=== PATIENT | female | born 1985 | race Hispanic/Latino ===

== ENCOUNTER 2016-05-21 16:28 | Emergency (ER) | payer OTHER ==
[~2016-05-21] VITALS: Ht 160 cm; Wt 93.6 kg
[~2016-05-21 16:28] MED LIST: Hydrocodone/Acetaminophen PO; Ibuprofen PO; PREN-100 PO; TUCPAD TOPICAL
[2016-05-21 16:30] VITALS: BP 108/67; PULSE 73; RESP 20; O2SAT 99
[2016-05-21] MEDS ORDERED: 0.9% Sodium Chloride 1,000 ML IV ONE (16:43)
[2016-05-21] MEDS ORDERED: Ondansetron 2 mg/mL 2 mL Inj IV PRN (16:45)
[2016-05-21 17:34] LABS: APPEARANCE,URINE TURBID (CLEAR,HAZY); COLOR,URINE YELLOW (YELLOW); OCCULT BLOOD,URINE SMALL (NEGATIVE); PH,URINE 5.5 (5.0-8.0); UROBILINOGEN,URINE NORMAL (NORMAL)
[2016-05-21] MEDS ORDERED: Nitrofurantoin Monohyd-Macrocryst 100 mg Capsule PO ONE (17:40)
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
[2016-05-21 18:15] LABS: BASOPHILS % (AUTO) 0.2 % (0-3); EOSINOPHILS % (AUTO) 1.1 % (0-5); MONOCYTES % (AUTO) 8.1 % (4-12); Mean Corpuscular Hemoglobin 29.5 pg (27.0-35.0); NEUTROPHILS % (AUTO) 70.1 % (40-74); Platelet Count 209 bil/L (150-400)
[2016-05-21 18:33] LABS: Magnesium 1.8 mg/dL (1.6-2.6)
[2016-05-21] MEDS ORDERED: _Ondansetron ODT 4 mg Tablet PO PRN (18:35)
[2016-05-21] MEDS ORDERED: cefTRIAXone Inj 1,000 MG in Dextrose 5% Minibag Plus 50 ML IV ONE (18:50)
[2016-05-21 19:25] VITALS: BP 102/63; PULSE 54; O2SAT 100
[2016-05-21 19:58] VITALS: BP 102/63; PULSE 54; RESP 20; O2SAT 100
[2016-05-21] MEDS ORDERED: _Nitrofurantoin Macrocrystal 100 mg Capsule PO SCH (20:30)
== END 2016-05-21 20:09 | disposition home or self-care (01) ==
LOC: SED 16:28
DX: O21.1 Hyperemesis gravidarum with metabolic disturbance (principal); O23.31 Infections of other parts of urinary tract in pregnancy, first trimester; B96.20 Unspecified Escherichia coli [E. coli] as the cause of diseases classified elsewhere; Z3A.12 12 weeks gestation of pregnancy
CPT/HCPCS: 36415; 80053; 81000; 83605; 83690; 83735; 85025; 87086; 87088; 87186; 93005; 96361; 96365; 99285; J0696; J7030

== ENCOUNTER 2016-05-26 13:30 | Day surgery (SDC) | payer OTHER ==
[2016-05-26] MEDS ORDERED: Lactated Ringer's 1,000 ML IV ONE (13:45)
[2016-05-26 14:05] VITALS: BP 109/54; PULSE 58; RESP 16; O2SAT 98
== END 2016-05-26 23:59 | disposition home or self-care (01) ==
LOC: MOCO 13:30
PROVIDERS: ATTEND Obstetrics & Gynecology
DX: O21.0 Mild hyperemesis gravidarum (principal); Z3A.11 11 weeks gestation of pregnancy
CPT/HCPCS: 96360; J7120

== ENCOUNTER 2016-06-14 18:54 | Emergency (ER) | payer OTHER ==
[~2016-06-14] VITALS: Ht 162.6 cm; Wt 92.7 kg
[2016-06-14 19:06] VITALS: BP 101/65; PULSE 68; RESP 20; O2SAT 100
[2016-06-14 19:32] LABS: BASOPHILS % (AUTO) 0.1 % (0-3); EOSINOPHILS % (AUTO) 1.2 % (0-5); MONOCYTES % (AUTO) 8.4 % (4-12); Mean Corpuscular Hemoglobin 28.8 pg (27.0-35.0); Mean Corpuscular Volume 83.3 fL (81-100); NEUTROPHILS % (AUTO) 65.1 % (40-74); Platelet Count 204 bil/L (150-400)
[2016-06-14 19:54] LABS: Magnesium 1.8 mg/dL (1.6-2.6)
--- NOTE | 2016-06-14 20:28 | ED.REPORT ---
HPI-Abd Pain F Under 40 Date of Service Jun 14, 2016 ED Provider: Navjot García MD A 30 year old, approx 3 month female presents to the ED complaining of diffuse mild/constant abdominal pain that began 3 months ago. Patient rates her current pain as a 3/10 and describes the pain as "sharp". Patient states that the pain has been constant since onset. Associated symptoms include nausea and 4-5 episodes of vomiting per day (which has been managed with Zofran). The pain is not exacerbated or received by anything. Patient was seen in the ED on 05/21 for similar symptoms and was treated with Macrobid and Rocephin for a UTI, Sx resolved an dthen returned. She denies fever, chills, increased urinary frequency, dysuria, or abnormal discharge. Patient denies history of STI's. Nursing Notes Stated Complaint: STOMACH PAIN Chief Complaint: Female Abdominal Pain Nursing Notes Reviewed: Yes Allergies: Coded Allergies: No Known Allergies (Verified Allergy, Unknown, 06/14/16) Scheduled PRN ([Hydrocodone/Acetaminophen]) 1 TAB TABLET 1 TAB PO Q4H PRN PRN For Pain ([Ibuprofen]) 800 MG TABLET 800 MG PO Q6H PRN PRN For Pain Witch Silva/Glycerin (A.e.r Pads) 12 Towelette/Pkg Towelette 1 TOWELETTE TOPICAL UD PRN PRN perineal discomfort Miscellaneous Medications Vits #90/Iron Fum/FA ( Formula Tablet) 1 Each Tablet 1 EACH PO General Time Seen by MD: 20:23 Chief Complaint Abdominal pain Hx Obtained From: Patient Arrived By: Walk-in Sudden in Onset?: No Onset Occurred: More than a week ago... (3 months) Symptom Duration: Since onset Progression since Onset: Unchanged Location: : Diffuse Quality: Sharp Radiation: : Does not radiate Severity: Current: Mild Severity: Maximum: Moderate Status: Positive - ED urine HCG : 4 Para: 3 RH Status / Blood Type: Rh Positive Pertinent Negative: Exacerbated by nothing, Relieved by nothing Recent Healthcare: No recent hospitalization, Recent doctor visit Past Medical History Past Medical History Notes: 03/24/14 Rh test is positive Past Medical History Approx 3 months Past Surgical History Denies Smoking History Unknown if Ever Smoker Social History Alcohol Use: Denies alcohol use Other Social History: , Lives with children Ambulatory Status Independent Review of Systems Constitutional: Denies: Chills, Fever Respiratory: Denies: Shortness of breath Cardiovascular: Denies: Chest pain GI: Reports: Abdominal pain, Nausea, Vomiting Female: Reports: (approx 3 months ), Denies: Dysuria, Urinary frequency, Vaginal bleeding - abnl, Vaginal discharge Complete sys rev & neg: except as marked. Physical Exam Initial Vital Signs Vital Signs (First) Date Time Temp Pulse Resp B/P Pulse Ox O2 Delivery O2 Flow Rate FiO2 06/14/16 19:06 36.4 68 20 101/65 100 Room Air Initial VS: Reviewed Head / Eyes: Atraumatic, Normocephalic, PERRL Extremities: Vascular intact, Neuro intact, No swelling, No tenderness Skin: Warm, Dry, No cyanosis Neurologic: Alert, Oriented, Nonfocal Psychiatric: Mood/affect normal, Behavior normal, Normal thought content General/Constitutional: Awake, Alert Respiratory / Chest: Atraumatic, Breath sounds NL, Breath sounds = bilat, No respiratory distress Cardiovascular: Heart rate NL, Regular rhythm, Heart sounds NL, No gallop, No murmurs, No rubs, Pulses = bilaterally (Good distal pulses ) Abdomen: Atraumatic, Soft, Non-tender (Tolerates firm palpation in all four quadrants), No distention Back: Atraumatic, Inspection NL ENT: Atraumatic, Airway patent, Mucous membranes moist Interpretation & Diagnostics Lab Results Interpretation Result Diagram: 06/14/16192306/14/161923 Test 06/14/16 19:24 06/14/16 20:38 06/14/16 20:58 White Blood Count 8.3th/mm3 (3.8-10.1) Red Blood Count 4.44mil/mm3 (3.90-5.20) Hemoglobin 12.8g/dL (12.0-15.6) Hematocrit 37.0% (35.0-46.0) Mean Corpuscular Volume 83.3fL (81-100) Mean Corpuscular Hemoglobin 28.8pg (27.0-35.0) Mean Corpuscular Hemoglobin Concent 34.6% (32.0-37.0) Red Cell Distribution Width 14.0% (12.3-15.4) Platelet Count 204bil/L (150-400) Neutrophils (%) (Auto) 65.1% (40-74) Lymphocytes (%) (Auto) 25.0% (14-46) Monocytes (%) (Auto) 8.4% (4-12) Eosinophils (%) (Auto) 1.2% (0-5) Basophils (%) (Auto) 0.1% (0-3) Sodium Level 135mEq/L (134-144) Potassium Level 3.8mEq/L (3.5-5.2) Chloride Level 99mEq/L (97-108) Carbon Dioxide Level 22mmol/L (18-29) Blood Urea Nitrogen 10mg/dL (6-20) Creatinine 0.48mg/dL (0.57-1.00) Estimat Glomerular Filtration Rate 215mL/min (>59) Glucose Level 88mg/dL (60-99) Calcium Level 8.9mg/dL (8.5-10.1) Magnesium Level 1.8mg/dL (1.6-2.6) Total Bilirubin 0.3mg/dL (0.0-1.2) Aspartate Amino Transf (AST/SGOT) 15U/L (0-50) Alanine Aminotransferase (ALT/SGPT) 13U/L (0-32) Alkaline Phosphatase 83U/L (25-150) Total Protein 7.3g/dL (6.4-8.4) Albumin 3.8g/dL (3.4-5.0) Lipase 30U/L (13-60) HCG Beta Subunit [id number]/mL Hold Martin Top Tube Received (Received) Hold Urine Received (Received) Urine Color Yellow (YELLOW) Urine Appearance Hazy (CLEAR,HAZY) Urine pH 6.0 (5.0-8.0) Urine Specific [place] 1.020 (1.003-1.035) Urine Protein Negativemg/dL (NEG,TRACE) Urine Glucose (UA) Negativemg/dL (NEGATIVE) Urine Ketones Negativemg/dL (NEGATIVE) Urine Occult Blood Trace (NEGATIVE) Urine Nitrite Negative (NEGATIVE) Urine Bilirubin Negative (NEGATIVE) Urine Urobilinogen Normalmg/dL (NORMAL) Urine Leukocyte Esterase Large (NEGATIVE) Urine RBC 0-2/hpf (0-2) Urine WBC >50/hpf (0-5) Urine Epithelial Cells Many/hpf (NONE-MOD) Urine Crystals None seen (NONE SEEN) Urine Bacteria Moderate/hpf (NONE-FEW) Urine Hyaline Casts None/lpf (NONE) Urine Granular Casts None seen (NONE SEEN) Urine Waxy Casts None seen (NONE SEEN) Urine Red Blood Cell Casts None seen (NONE SEEN) Urine White Blood Cell Casts None seen (NONE SEEN) Urine Mucus None seen (None Seen) Urine Trichomonas None seen (NONE SEEN) Urine Yeast None (NONE SEEN) Urine Culture Reflexed Indicated Re-Eval/Medical Decision Med Decision/Clinical Course A 30 year old, approx 3 month female presents to the ED complaining of diffuse mild/constant abdominal pain that began 3 months ago. Patient rates her current pain as a 3/10 and describes the pain as "sharp". Patient states that the pain has been constant since onset. Associated symptoms include nausea and 4-5 episodes of vomiting per day (which has been managed with Zofran). The pain is not exacerbated or received by anything. Patient was seen in the ED on 05/21 for similar symptoms and was treated with Macrobid and Rocephin for a UTI, Sx resolved an dthen returned. She denies fever, chills, increased urinary frequency, dysuria, or abnormal discharge. Patient denies history of STI's. No vaginal bleeding or abnormal vaginal discharge. Here in the emergency department the patient is afebrile with stable vital signs and in no apparent distress. Abdominal examination is completely benign. Laboratory studies notable as below: UA positive leukocytes negative nitrites trace blood positive Last UA 05/21 - E. coli powell susceptible Serial abdominal examinations remained benign. I see no indication at this time due to the patient is suffering from an acute surgical intra-abdominal process. History, examination and presentation not suggestive of acute cholecystitis/biliary colic. No vaginal bleeding suggestive of a threatened . Patient afebrile and nontoxic in appearance without any percussive flank tenderness. History and examination not suggestive of acute appendicitis or ovarian torsion. 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 Urinalysis is consistent with UTI in the setting of I will go ahead and treat her with a 7 day course of amoxicillin. Given that she recurrence of her symptoms after treatment with Macrobid. I have opted to change to a different antibiotic though she was sensitive to both on previous culture. She will follow closely with her SCHEME TECHNICIAN later this week. Follow-up and return precautions were reviewed in detail and she was discharged in good condition. Re-Evaluation/Progress : Time of Eval: 21:46 Patient Status: Condition improved Re-Evaluation/Progress Note: Patient is rechecked. She is informed of her lab results and diagnosis. All of the patient's questions are adressed. She understands and agrees with the treatment plan to discharge. Counseled Regarding: Diagnosis, Lab results, Need for follow-up, When/why to return to ED Discharge & Departure Primary Impression: UTI (urinary tract infection) Urinary tract infection type: site unspecified Hematuria presence: without hematuria Qualified Code: N39.0 - Urinary tract infection, site not specified Additional Impressions: Asymptomatic bacteriuria Weeks of gestation: unspecified Qualified Code: Z33.1 - state, incidental Abdominal pain Abdominal location: unspecified location Qualified Code: R10.9 - Unspecified abdominal pain Disposition: Home Discharge Condition All VS Reviewed: Yes Condition: Improved Patient Instructions: Urinary Tract Infection in Women (ED) Additional Instructions: Thank you for seeking care at the emergency room. It is difficult for us to make definitive diagnoses in the ED but we believe that you are experiencing a urinary tract infection. Our primary goal today in the ED was to evaluate you for any life-threatening conditions. Your evaluation was reassuring. You will be discharged with a prescription for an amoxicillin. Please take as prescribed. You should follow-up with your outreach librarian in the next week. You should return to the ED immediately if you develop fevers, vomiting, vaginal bleeding, worsening pain, lightheadedness, weakness or any other concerning signs or symptoms. Thank you for letting us partake in your care today. Referrals: NOPCP (PCP) Jerri Campos MD Attestation Portions of this note were transcribed by Scotty Rondon. I, Dr. García personally performed the history, physical exam and medical decision-making; I reviewed and confirmed the accuracy of the information in the transcribed note. Signed by: Selene Stevenson, 06/14/16 [id number]. Navjot García MD Jun 14, 2016 20:27 SCOTTY RONDON Jun 14, 2016 20:55
[2016-06-14 21:51] VITALS: BP 103/68; PULSE 65; RESP 16; O2SAT 100
[2016-06-14 22:06] LABS: APPEARANCE,URINE HAZY (CLEAR,HAZY); COLOR,URINE YELLOW (YELLOW); OCCULT BLOOD,URINE TRACE (NEGATIVE); UROBILINOGEN,URINE NORMAL (NORMAL)
== END 2016-06-14 21:48 | disposition home or self-care (01) ==
LOC: SED 18:54
DX: O23.41 Unspecified infection of urinary tract in pregnancy, first trimester (principal); R82.71 Bacteriuria; O21.0 Mild hyperemesis gravidarum; Z3A.00 Weeks of gestation of pregnancy not specified

== ENCOUNTER 2016-07-16 18:06 | Emergency (ER) | payer OTHER ==
[~2016-07-16] VITALS: Ht 162.6 cm; Wt 90.5 kg
[2016-07-16 18:28] VITALS: BP 107/64; PULSE 63; RESP 15; O2SAT 99
--- NOTE | 2016-07-16 19:11 | ED.REPORT ---
HPI-General Illness Date of Service Jul 16, 2016 ED Provider: Navjot García MD Patient is a 30 year old female at approximately four months by US dating with a history of GERD who presents to the ED with burning epigastric abdominal pain onset two hours ago. The pain is exacerbated with eating. Associated symptoms include insomnia and increased production of acidic sputum. The patient denies dysuria, hematuria, vaginal discharge, or other symptoms. She has had similar symptoms in the past associated with GERD. The patient was previously on pantoprazole but she stopped taking this medication when she became . [facility] . Nursing Notes Stated Complaint: WITH STOMACH PAIN Chief Complaint: & Delivery Nursing Notes Reviewed: Yes Allergies: Coded Allergies: No Known Allergies (Verified Allergy, Unknown, 07/16/16) Scheduled Nitrofurantoin Macrocrystal (Nitrofurantoin Macrocrystal) 100 Mg Capsule 100 MG PO QID Scheduled PRN ([Hydrocodone/Acetaminophen]) 1 TAB TABLET 1 TAB PO Q4H PRN PRN For Pain ([Ibuprofen]) 800 MG TABLET 800 MG PO Q6H PRN PRN For Pain Sucralfate Susp (Carafate Susp) 1 Gm/10 Ml Oral.susp 1 GM PO QID PRN PRN AD Witch Silva/Glycerin (A.e.r Pads) 12 Towelette/Pkg Towelette 1 TOWELETTE TOPICAL UD PRN PRN perineal discomfort Miscellaneous Medications Vits #90/Iron Fum/FA ( Formula Tablet) 1 Each Tablet 1 EACH PO General Time Seen by MD: 18:53 Chief Complaint Abdominal pain Hx Obtained From: Patient Arrived By: Walk-in Sudden in Onset?: Yes Onset Occurred: 1 - 4 hours ago Symptom Duration: Since onset Location: : Abdomen (Epigastric) Quality: Burning, Painful Severity: Current: Moderate Severity: Maximum: Moderate Exacerbated by: Eating Pertinent Negative: Relieved by nothing Context Related History: Reports GERD Recent Healthcare: Recent doctor visit Similar Sx Previous: Yes Past Medical History Past Medical History Notes: 03/24/14 Rh test is positive Past Medical History as of 07/16/2016 GERD Past Surgical History Denies Smoking History Unknown if Ever Smoker Social History Alcohol Use: Denies alcohol use Other Social History: , Lives with children Ambulatory Status Independent Review of Systems + Increased production of acidic sputum Full Review of Systems Constitutional: Denies: Fever Respiratory: Denies: Non-productive cough, Shortness of breath GI: Reports: Abdominal pain (Epigastric), Denies: Diarrhea, Vomiting Female: Denies: Dysuria, Hematuria, Vaginal discharge Psychiatric: Reports: Insomnia Complete sys rev & neg: except as marked. Physical Exam Vital Signs Vital Signs Date Time Temp Pulse Resp B/P Pulse Ox O2 Delivery O2 Flow Rate FiO2 07/16/16 18:28 36.9 63 15 107/64 99 Room Air Initial VS: Reviewed Head / Eyes: Atraumatic, Normocephalic ENT: Conjunctiva normal, No scleral icterus Neck: Supple, Full range of motion Skin: Warm, Dry, No cyanosis Neurologic: Alert, Oriented, Nonfocal Psychiatric: Mood/affect normal, Behavior normal, Normal thought content General/Constitutional: Awake, Alert, No acute distress Respiratory / Chest: Breath sounds NL, Breath sounds = bilat, No respiratory distress Cardiovascular: Heart rate NL, Regular rhythm, Heart sounds NL, No gallop, No murmurs, No rubs Abdomen: Soft, No distention Tenderness/Guarding/Rebound: Positive: Tender epigastric (Mild) Gravid abdomen consistent with 16 weeks of Lower Extremity / Pelvis / MS: Inspection NL, No swelling Interpretation & Diagnostics URINE DIPSTICK: 1.015 sp gravity 7 pH ++ Leukocytes + Nitrites Trace protein Normal glucose 8 Urobilinogen Otherwise Negative Lab Results Interpretation Result Diagram: 07/16/16190407/16/161904 Test 07/16/16 19:05 07/16/16 19:15 White Blood Count 7.9th/mm3 (3.8-10.1) Red Blood Count 4.05mil/mm3 (3.90-5.20) Hemoglobin 12.2g/dL (12.0-15.6) Hematocrit 34.7% (35.0-46.0) Mean Corpuscular Volume 85.7fL (81-100) Mean Corpuscular Hemoglobin 30.1pg (27.0-35.0) Mean Corpuscular Hemoglobin Concent 35.2% (32.0-37.0) Red Cell Distribution Width 14.9% (12.3-15.4) Platelet Count 194bil/L (150-400) Neutrophils (%) (Auto) 71.6% (40-74) Lymphocytes (%) (Auto) 19.6% (14-46) Monocytes (%) (Auto) 7.2% (4-12) Eosinophils (%) (Auto) 1.0% (0-5) Basophils (%) (Auto) 0.3% (0-3) Sodium Level 138mEq/L (134-144) Potassium Level 3.4mEq/L (3.5-5.2) Chloride Level 102mEq/L (97-108) Carbon Dioxide Level 20mmol/L (18-29) Blood Urea Nitrogen 10mg/dL (6-20) Creatinine 0.41mg/dL (0.57-1.00) Estimat Glomerular Filtration Rate 258mL/min (>59) Glucose Level 94mg/dL (60-99) Calcium Level 9.2mg/dL (8.5-10.1) Magnesium Level 1.7mg/dL (1.6-2.6) Total Bilirubin 0.4mg/dL (0.0-1.2) Aspartate Amino Transf (AST/SGOT) 21U/L (0-50) Alanine Aminotransferase (ALT/SGPT) 30U/L (0-32) Alkaline Phosphatase 98U/L (25-150) Total Protein 7.3g/dL (6.4-8.4) Albumin 3.8g/dL (3.4-5.0) Lipase 31U/L (13-60) Hold Martin Top Tube Received (Received) Urine Color Yellow (YELLOW) Urine Appearance Clear (CLEAR,HAZY) Urine pH 7.0 (5.0-8.0) Urine Specific Lovilia 1.020 (1.003-1.035) Urine Protein 30mg/dL (NEG,TRACE) Urine Glucose (UA) 100mg/dL (NEGATIVE) Urine Ketones Tracemg/dL (NEGATIVE) Urine Occult Blood Negative (NEGATIVE) Urine Nitrite Negative (NEGATIVE) Urine Bilirubin Negative (NEGATIVE) Urine Urobilinogen 8.0mg/dL (NORMAL) Urine Leukocyte Esterase Small (NEGATIVE) Urine RBC 0-2/hpf (0-2) Urine WBC 0-5/hpf (0-5) Urine Epithelial Cells Many/hpf (NONE-MOD) Urine Crystals Oxalic acid crystals (NONE Urine Bacteria None/hpf (NONE-FEW) Urine Hyaline Casts None/lpf (NONE) Urine Granular Casts None seen (NONE SEEN) Urine Waxy Casts None seen (NONE SEEN) Urine Red Blood Cell Casts None seen (NONE SEEN) Urine White Blood Cell Casts None seen (NONE SEEN) Urine Mucus Present (None Seen) Urine Trichomonas None seen (NONE SEEN) Urine Yeast None (NONE SEEN) Urinalysis Comment None Urine Culture Reflexed Indicated Re-Eval/Medical Decision Med Decision/Clinical Course Patient is a 30 year old female at approximately four months by US dating with a history of GERD who presents to the ED with burning epigastric abdominal pain onset two hours ago. The pain is exacerbated with eating. Associated symptoms include insomnia and increased production of acidic sputum. The patient denies dysuria, hematuria, vaginal discharge, or other symptoms. She has had similar symptoms in the past associated with GERD. The patient was previously on pantoprazole but she stopped taking this medication when she became . [facility] . Here in the emergency department the patient is afebrile with stable vital signs and in no apparent distress. Abdominal examination is completely benign except for very mild epigastric tenderness. URINE DIP: 2+ leukocytes, + nitrites LABS: CBC shows no leukocytosis Hematocrit 34.7 CMP unremarkable Urinalysis shows small leukocyte esterase, no bacteria, 0-5 WBCs, nitrite negative Presentation highly suggestive of GERD as the patient's symptoms are similar to her prior episodes of GERD, she is currently and recently stopped her PPI due to being . She was treated with sucralfate and reported dramatic improvement in her symptoms. I do not feel that her presentation is suggestive of an acute surgical process such as cholecystitis and I do not feel that abdominal imaging studies are indicated. She has no symptoms suggestive of impending miscarriage such as cramping abdominal pain or vaginal bleeding. She well dietary changes and lifestyle changes and takes sucralfate if needed for breakthrough symptoms. Of note she has asymptomatic bacteriuria and has been prescribed an appropriate course of antibiotics. She will follow up with her POWER TECHNICIAN. Prior to discharge follow-up and return precautions were reviewed in detail with the patient who verbalized understanding and agreement with the plan. The patient was discharged in stable condition. Source of Hx: Old records Time of Eval: 20:15 Patient Status: Condition improved Re-Evaluation/Progress Note: Discussed with patient lab results, diagnosis, and plan for discharge. Follow-up and return to the ER instructions given. Patient agrees with plan for care and all questions were addressed. Counseled Regarding: Diagnosis, Lab results, Need for follow-up, When/why to return to ED Discharge & Departure Primary Impression: GERD (gastroesophageal reflux disease) Esophagitis presence: with esophagitis Qualified Code: K21.0 - Gastro- esophageal reflux disease with esophagitis Additional Impressions: Gastritis Gastritis type: unspecified gastritis Chronicity: acute Gastritis bleeding : without bleeding Qualified Code: K29.00 - Acute gastritis without bleeding Asymptomatic bacteriuria Weeks of gestation: 16 weeks Qualified Code: Z3A.16 - 16 weeks gestation of Disposition: Home Discharge Condition All VS Reviewed: Yes Condition: Improved Patient Instructions: Gastritis (ED), Gastroesophageal Reflux Disease (ED) Additional Instructions: Thank you for seeking care at the emergency room. It is difficult for us to make definitive diagnoses in the ED but we believe that you are experiencing acid reflux. Please avoid eating before bedtime, avoid spicy foods/coffee and elevate the head of your bed night. You may take sucralfate as needed for stomach irritation. You also have signs of a UTI without symptoms. Please take the 3 day course of antibiotics as directed and follow up with her POWER TECHNICIAN to review the results of your urine culture. Our primary goal today in the ED was to evaluate you for any life-threatening conditions. Your evaluation was reassuring. You should follow-up with your primary doctor in the next week. You should return to the ED immediately if you develop any worsening symptoms, vaginal bleeding, cramping, fevers, vomiting, cough, shortness of breath, chest pain, lightheadedness, weakness or any other concerning signs or symptoms. Thank you for letting us partake in your care today. Referrals: [facility] (PCP) [facility] Selene Attestation Portions of this note were transcribed by Emilie Francisco. I, Dr. García, personally performed the history, physical exam, and medical decision-making; I reviewed and confirmed the accuracy of the information in the transcribed note. Signed by: Selene Nobles, 07/16/2016, 20:55 copies to: [facility] Navjot García MD Jul 16, 2016 19:11 EMILIE FRANCISCO Jul 16, 2016 19:59
[2016-07-16 19:16] LABS: BASOPHILS % (AUTO) 0.3 % (0-3); MONOCYTES % (AUTO) 7.2 % (4-12); Mean Corpuscular Hemoglobin 30.1 pg (27.0-35.0); Mean Corpuscular Volume 85.7 fL (81-100); NEUTROPHILS % (AUTO) 71.6 % (40-74); Platelet Count 194 bil/L (150-400)
[2016-07-16 19:37] LABS: Magnesium 1.7 mg/dL (1.6-2.6)
[2016-07-16 19:37] LABS: APPEARANCE,URINE CLEAR (CLEAR,HAZY); COLOR,URINE YELLOW (YELLOW)
[2016-07-16 19:38] LABS: OCCULT BLOOD,URINE NEGATIVE (NEGATIVE)
[2016-07-16] MEDS ORDERED: SUCR1ORA2 PO (20:14)
[2016-07-16] MEDS ORDERED: NITR100C PO (20:14)
[2016-07-16] MEDS ORDERED: Sucralfate 100 mg/mL 10 mL Suspension PO ONE (20:15)
[2016-07-16] MEDS ORDERED: Nitrofurantoin Monohyd-Macrocryst 100 mg Capsule PO ONE (20:15)
== END 2016-07-16 21:13 | disposition home or self-care (01) ==
LOC: SED 18:06
DX: O99.612 Diseases of the digestive system complicating pregnancy, second trimester (principal); K21.0 Gastro-esophageal reflux disease with esophagitis; K29.00 Acute gastritis without bleeding; O23.92 Unspecified genitourinary tract infection in pregnancy, second trimester; B96.89 Other specified bacterial agents as the cause of diseases classified elsewhere; Z3A.16 16 weeks gestation of pregnancy

== ENCOUNTER 2016-10-12 16:00 | Inpatient (IN) | payer OTHER, MEDICAID ==
[~2016-10-12] VITALS: Ht 132.1 cm; Wt 94.3 kg
[~2016-10-12 16:00] MED LIST changes: +SUCR1ORA2 PO; +SULF1TAB35 PO
[2016-10-12] MEDS ORDERED: Lactated Ringer's 1,000 ML IV SCH (16:20)
[2016-10-12] MEDS ORDERED: Betameth Ace-Betam SodPhos 6 mg/mL 5 mL Inj IM ONE (16:25)
[2016-10-12] MEDS ORDERED: Magnesium Sulf 4 Gm/100 mL D5W Premix IV ONE (16:25)
[2016-10-12] MEDS ORDERED: Calcium GLUCOnate 10% (Gm) 1 Gm/10 mL Inj ONE (16:52)
[2016-10-12 17:11] LABS: BASOPHILS % (AUTO) 0.1 % (0-3); EOSINOPHILS % (AUTO) 0.5 % (0-5); MONOCYTES % (AUTO) 6.5 % (4-12); Mean Corpuscular Hemoglobin 29.1 pg (27.0-35.0); Mean Corpuscular Volume 83.6 fL (81-100); NEUTROPHILS % (AUTO) 77.3 % (40-74); Platelet Count 214 bil/L (150-400)
[2016-10-12] MEDS: Lactated Ringer's 1,000 ML IV SCH ×2 (17:14→18:04)
[2016-10-12] MEDS: Magnesium Sulf 20 Gm/500mL D5W Premix IV SCH (17:15)
[2016-10-12 17:22] LABS: APPEARANCE,URINE HAZY (CLEAR,HAZY); COLOR,URINE YELLOW (YELLOW); OCCULT BLOOD,URINE NEGATIVE (NEGATIVE); PH,URINE 5.5 (5.0-8.0); UROBILINOGEN,URINE NORMAL (NORMAL)
[2016-10-12] MEDS ORDERED: Lactated Ringer's 1,000 ML IV PRN (19:34)
[2016-10-12] MEDS ORDERED: Ondansetron 2 mg/mL 2 mL Inj IVPUSH PRN (19:35)
[2016-10-12] MEDS ORDERED: Sodium Chloride LOK Flush 10 mL Syringe IVFLUSH PRN (19:35)
--- NOTE | 2016-10-12 19:44 | HP ---
[address] [address] HISTORY AND PHYSICAL PATIENT: TOM RANDHAWA : 1985 MR#: [id number] ADMIT: 10/12/2016 JOB ID: [id number] HISTORY OF PRESENT ILLNESS: The patient is a 31-year-old, 3, para 2 at 33 weeks and 1 day in her , being admitted with complaints of pelvic pressure and contractions. She is being sent from the clinic, where a cervical check was done today and showed that she is 4 cm dilated, 50% effaced, -2 station. The patient stated that she has been feeling pelvic pressure in the last four weeks. At 10:00 this morning the pelvic pressure was increasing. She fell contractions. It was worse but she went for her visit at 3:00 and subsequently was sent to labor and delivery. PAST MEDICAL HISTORY: Significant by some risk of labor; in her prior she was admitted for that at 34 weeks with [facility] and received vaginal progesterone. She decline vaginal progesterone this time. She delivered both pregnancies at 38 weeks. The baby has two-vessel umbilical cord. The patient had history of UTI twice in this was prescribed Macrobid. ALLERGIES: NKDA. SOCIAL HISTORY: She denies smoking, alcohol, or illicit or recreational drug use. LABORATORY: Reviewed. She is blood group type A positive. Varicella immune, rubella immune. GBS unknown. PHYSICAL EXAMINATION: Vital signs: Blood pressure 98/43, pulse 66, respiratory rate 18, temperature 36.5. HEENT: PERRLA. General: Awake, alert, oriented x3. Complaining of intermittent contractions and abdominal cramps 4/10 intensity. Abdomen: Soft, gravid intermittently tender mildly. Chest: Clear. No adventitious sounds. Good respiratory effort. Cardiovascular: Regular rate and rhythm. Pelvic: The cervix is 4 cm dilated, 50% effaced, station -3, intact membranes. No vaginal bleeding. Irregular contractions, duration about 50 seconds. heart rate tracing is reactive, category 1, with moderate variability, baseline 125-130 beats per minute. presentation is cephalic. ASSESSMENT AND PLAN: The patient is a 30-year-old, para two presented at 32 weeks and 1 day with complaint of contractions to rule out labor. Labs were sent including CBC, comprehensive metabolic panel, urinalysis, and urine culture. Group B strep culture was sent as well. IV fluid started. Magnesium started with 4 g bolus followed by 2 g/hour. Betamethasone one dose was given. The patient is being kept on close observation. In case there is cervical change or increasing contractions the possibility of transfer to the tertiary care center was discussed with the patient.
[2016-10-12] MEDS: Nitrofurantoin Monohyd-Macrocryst 100 mg Capsule PO SCH (20:12)
[2016-10-13] MEDS: Lactated Ringer's 1,000 ML IV SCH (04:25)
--- NOTE | 2016-10-13 07:58 | PCM.PNOBIP ---
Subjective Date of Service Oct 13, 2016 Visit History Ms. Brown is a 30-year-old, 5, para 2 at 32 weeks and 2 day gestation with an BEBA of 12/06/2016 based on 7 week 2 days ultrasound who was admitted with complaints of pelvic pressure and contractions. complicated by 2 vessel umbilical cord and orthotopic placement of the umbilical cord. She has history of cervical shortening with previous delivery at 38 weeks twice. During her last , she would admitted at 34 weeks at [facility] and was on vaginal progesterone. She was sent from the clinic yesterday to the hospital, a cervical check was done on 10/12/16 in the office, which showed that she is 4 cm dilated, 50% effaced, -2 station. The patient stated that she had been feeling pelvic pressure in the last four weeks. She was admitted and given a bolus 1 L of lactated Ringer's followed by 75 mL per hour; betamethasone 12 mg once at 16:25 on 10/12/2016; magnesium sulfate 4 g followed by 2 g/h until 2 AM after an episode of bradycardia; a one-time dose of 150 mg Diflucan; and started on Macrobid 100 mg twice per day. UA showed moderate bacteria with trace leukocyte esterase. Wet mount showed white blood cells and yeast. GBS, gonorrhea and chlamydia were performed and are pending. Repeat cervical exam yesterday did not show change from the initial check done in the clinic. Today , she continues to have contractions one every 30-60 minutes. She was re- examined this morning (10/13/2016) and found to be 5-6 cm dilated, 80% effaced, high, and bulging amniotic sac. At this time, the process for her transferring her to a tertiary care center was initiated. Obstetrical history: History of one missed and one spontaneous . History of 2 at 38 weeks. Subjective This morning, she felt two more contractions and pressure in her pelvis. She has not felt a gush of fluid. She has a mild headache. She does not have upper abdominal pain. Labs Blood type A positive, antibody negative, RPR nonreactive, rubella immune, HBsAg negative, HIV non-reactive, varicella immune, hepatitis C negative, TSH 1.7, hemoglobin A1c 4.9, Pap smear negative, HPV negative, gonorrhea and chlamydia negative, one hour glucose tolerance test within normal limits Tdap given on 10/12/2016 Group B Strep Results: Sent, awaiting results Rubella: Immune Blood Type: A RH Type: Positive Labs Laboratory Tests 10/12/16 17:07: White Blood Count 8.9, Red Blood Count 4.09, Hemoglobin 11.9, Hematocrit 34.2, Mean Corpuscular Volume 83.6, Mean Corpuscular Hemoglobin 29.1, Mean Corpuscular Hemoglobin Concent 34.8, Red Cell Distribution Width 13.4, Platelet Count 214, Neutrophils (%) (Auto) 77.3, Lymphocytes (%) (Auto) 15.1, Monocytes ( %) (Auto) 6.5, Eosinophils (%) (Auto) 0.5, Basophils (%) (Auto) 0.1 Exam Vital Signs Vital Signs Contraction frequency in minutes: MVUs: Heart Tracings Heart Tones Baseline bpm Tocometry/IUPC Contraction frequency in minutes: MVUs: Ellen Delong DO Oct 13, 2016 07:58
[2016-10-13] MEDS ORDERED: Magnesium Sulf 20 Gm/500mL H2O 20 GM in IV Premix 1 EACH IV SCH (08:30)
[2016-10-13] MEDS ORDERED: Calcium GLUCOnate 10% (Gm) 1 Gm/10 mL Inj IV PRN (08:30)
[2016-10-13] MEDS ORDERED: Magnesium Sulf 4 Gm/100 mL H2O 4 GM in IV Premix 1 EACH IV ONE (08:30)
[2016-10-13] MEDS ORDERED: Penicillin G K 5,000,000 Units Inj ONE (08:33)
[2016-10-13] MEDS ORDERED: PENICILLIN K IV ONE (08:35)
[2016-10-13] MEDS ORDERED: SODIUM CHLORIDE 0.9% IV ONE (08:35)
--- NOTE | 2016-10-13 08:36 | PCM.DC.OB ---
Obstetrical Discharge Summary Date of Service Oct 13, 2016 Date of hospital admission Oct 12, 2016 at 18:00 Date of Discharge: Oct 13, 2016 Providers Admitting Physician: Marlena Chakraborty MD Primary Care Physician: Michelle Attending Physician: Marlena Chakraborty MD Diagnosis at Time of Discharge labor 30-year-old, 5, para 2 at 32 weeks and 2 day gestation with an BEBA of based on 7 week 2 days ultrasound UTI Marina vaginitis Problems: Brief History and Physical: Ms. Brown is a 30-year-old, 5, para 2 at 32 weeks and 2 day gestation with an BEBA of 12/06/2016 based on 7 week 2 days ultrasound who was admitted with complaints of pelvic pressure and contractions She was sent from the clinic yesterday to the hospital, a cervical check was done on 10/12/16 in the office, which showed that she is 4 cm dilated, 50% effaced, -2 station. The patient stated that she had been feeling pelvic pressure in the last four weeks. Hospital Course: Ms. Brown is a 30-year-old, 5, para 2 at 32 weeks and 2 day gestation with an BEBA of 12/06/2016 based on 7 week 2 days ultrasound who was admitted with complaints of pelvic pressure and contractions. complicated by 2 vessel umbilical cord and orthotopic placement of the umbilical cord. She had an Escherichia coli UTI in March 2016 which was treated and again in April 2016. Her BMI is 36. There are financial and social concerns in regards to patient's children. She has history of cervical shortening with previous delivery at 38 weeks twice. During her last , she would admitted at 34 weeks at [facility] and was on vaginal progesterone. She was sent from the clinic yesterday to the hospital, a cervical check was done on 10/12/16 in the office, which showed that she is 4 cm dilated, 50% effaced, -2 station. The patient stated that she had been feeling pelvic pressure in the last four weeks. She was admitted and given a bolus 1 L of lactated Ringer's followed by 75 mL per hour; betamethasone 12 mg once at 16:25 on 10/12/2016; magnesium sulfate 4 g followed by 2 g/h until 2 AM after an episode of bradycardia; a one-time dose of 150 mg Diflucan; and started on Macrobid 100 mg twice per day. UA showed moderate bacteria with trace leukocyte esterase. Wet mount showed white blood cells and yeast. GBS, gonorrhea and chlamydia were performed and are pending. Repeat cervical exam yesterday did not show change from the initial check done in the clinic. Today , she continues to have contractions one every 30-60 minutes. She was re- examined this morning (10/13/2016) and found to be 5-6 cm dilated, 80% effaced, high, and bulging amniotic sac. tracing is category 1. Patient continued to feel contractions and pelvic pressure and states that she feels worse than yesterday. She did not feel any gushes of fluid. At this time, the process for her transferring her to a tertiary care center was initiated. A stat US showed SERENITY 15 and growth [address] Medel is the accepting physician. She requested to give another 4 g bolus of magnesium sulfate and then continue 2 g per hour. She also requested to start the patient on penicillin. Obstetrical history: History of one missed and one spontaneous . History of 2 at 38 weeks. Magnesium Sulfate in Water (Magnesium Sulf 2 G/50 ml Bag) 2 Gram/50 Ml (4 %) Piggyback 2 GM IV Q1H Prescribed by: ELLEN DELONG DO Nitrofurantoin Monohyd/M-Cryst (MacroBid) 100 Mg Capsule 100 MG PO BID Prescribed by: ELLEN DELONG DO Penicillin G Potassium (Penicillin G Potassium) 5,000,000 Unit Vial 3,000,000 UNIT IJ Q4H Prescribed by: ELLEN DELONG DO Discontinued Medications ([Hydrocodone/Acetaminophen]) 1 TAB TABLET 1 TAB PO Q4H PRN PRN For Pain Prescribed by: WM VANESSA CNM ([Ibuprofen]) 800 MG TABLET 800 MG PO Q6H PRN PRN For Pain Prescribed by: WM VANESSA CNM Vits #90/Iron Fum/FA ( Formula Tablet) 1 Each Tablet 1 EACH PO (Reported) Sucralfate Susp (Carafate Susp) 1 Gm/10 Ml Oral.susp 1 GM PO QID PRN PRN AD Prescribed by: PHIL MEDRANO MD Sulfamethoxazole/Trimeth 800-160 mg (Bactrim DS 800-160 mg) 1 Each Tablet 1 TABLET PO BID Prescribed by: SYDNEE WRIGHT MD Witalex Silva/Glycerin (A.e.r Pads) 12 Towelette/Pkg Towelette 1 TOWELETTE TOPICAL UD PRN PRN perineal discomfort Prescribed by: WM VANESSA CNM Attending Statement: The patient was seen and examined together with Dr. Ellen Delong DO on 2016 and I agree with the history, exam and plan as outlined in the note above. Ellen Delong DO Oct 13, 2016 08:36 Dillon Adame MD Oct 19, 2016 17:00
[2016-10-13] MEDS ORDERED: MAGN2PIG IV (08:39)
[2016-10-13] MEDS ORDERED: NITR100 PO (08:39)
[2016-10-13] MEDS ORDERED: [UNRECOGNIZED DRUG - CODE] IJ (08:39)
--- NOTE | 2016-10-13 08:45 | PCM.DIOB ---
Obstetrical Disch Instruction Dates of Hospitalization Date of Hospital Admission Oct 12, 2016 at 18:00 Providers Admitting Physician: Marlena Chakraborty MD Primary Care Physician: Michelle Attending Physician: Marlena Chakraborty MD Discharge Diagnosis Discharge Diagnosis labor 32 weeks gestation Problems: Additional Instructions Discharge Instructions You are being transferred to the [facility] for continued care. Ellen Delong DO Oct 13, 2016 08:45
[2016-10-13] MEDS: Nitrofurantoin Monohyd-Macrocryst 100 mg Capsule PO SCH (08:46)
[2016-10-13] MEDS: Magnesium Sulf 20 Gm/500mL D5W Premix IV SCH (09:00)
--- NOTE | 2016-10-13 09:27 | DRSVH ---
PROCEDURE: US OB FOLLOW UP GROWTH INDICATIONS: evaluate growth, SERENITY, and position OUTSIDE/PRIOR DATING DATA: Last menstrual period (LMP): Not available. LMP-based estimated date of delivery (BEBA): Not available. First dating scan (date and location): 04/21/2016 at [facility]. Estimated date of delivery (BEBA) from first dating scan: 12/06/2016. TECHNIQUE: Real-time scanning was performed of the fetus, with image documentation and biometric measurements. COMPARISON: None. FINDINGS: General: A single living intrauterine gestation is present. Presentation: Vertex. Placenta: Placental position is posterior, without previa. 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 Report Summary Fetus Summary Estimated Gestational Age from first dating scan: 32 weeks, 2 days Estimated Gestational Age from present scan: 32 weeks, 2 days Estimated Weight (EFW): 1896 g EFW percentile rank: 33 % Heart Rate: 152 bpm Findings(Amniotic Sac) Amniotic Fluid Index: 14.90 cm Biometry BiometryGroup Biparietal Diameter (Mean): 8.14 cm Gestational Age (BPD): 32 weeks, 5 days Head Circumference (Mean): 29.39 cm Gestational Age (HC): 32 weeks, 3 days Abdominal Circumference (Mean): 27.74 cm Gestational Age (AC): 31 weeks, 6 days Femur Length (Mean): 6.22 cm Gestational Age (FL): 32 weeks, 2 days Pelvis and Uterus Cervix Length: 3 cm Measurement variability in biometric dating: +/- 7 days from 14 weeks to 15 weeks 6 days gestation, + /- 10 days from 16 weeks to 21 weeks 6 days gestation, +/- 2 weeks from 22 weeks to 27 weeks 6 days g estation, +/- 3 weeks for 28 weeks gestation or later. IMPRESSION: 1. A single living intrauterine gestation with appropriate interval growth. 2. Normal SERENITY. 3. Fetus in vertex presentation. Dictated by: Allen Faye M.D. on 10/13/2016 at 9:22 Transcribed by: MATTHEW on 10/13/2016 at 9:26 Approved by: Allen Faye M.D. on 10/13/2016 at 22:23
[2016-10-13] MEDS ORDERED: Penicillin G K Inj 3,000,000 UNITS in IV Premix 50 EACH IV SCH (12:30)
== END 2016-10-13 09:26 | disposition short-term general hospital (02) | DRG 778 ==
LOC: FBCO 16:00 → FBC 18:00
PROVIDERS: ADMIT Obstetrics & Gynecology; ATTEND Obstetrics & Gynecology
DX: O60.03 Preterm labor without delivery, third trimester (principal); Z3A.32 32 weeks gestation of pregnancy

== ENCOUNTER 2016-11-03 08:40 | Inpatient (IN) | payer OTHER, MEDICAID ==
[~2016-11-03] VITALS: Ht 160 cm; Wt 98.0 kg
[~2016-11-03 08:40] MED LIST changes: -Hydrocodone/Acetaminophen PO; -Ibuprofen PO; +MAGN2PIG IV; +NITR100 PO; -PREN-100 PO; -SUCR1ORA2 PO; -SULF1TAB35 PO; -TUCPAD TOPICAL; +[UNRECOGNIZED DRUG - CODE] IJ
[2016-11-03] MEDS ORDERED: Lactated Ringer's 1,000 ML IV PRN (09:29)
[2016-11-03] MEDS ORDERED: Lactated Ringer's 1,000 ML IV SCH ×2 (09:29→22:08)
[2016-11-03] MEDS ORDERED: Penicillin G K Inj 5,000,000 UNITS in Dextrose 5% Minibag Plus 100 ML IV ONE (09:30)
[2016-11-03] MEDS ORDERED: Oxytocin 10 Unit/mL Inj IM PRN (09:30)
[2016-11-03] MEDS ORDERED: Sodium Chloride LOK Flush 10 mL Syringe IVFLUSH PRN (09:30)
[2016-11-03] MEDS ORDERED: Methylergonovine 0.2 mg/mL Inj IM PRN (09:30)
[2016-11-03] MEDS ORDERED: Oxytocin 30 Units/500 mL LR 30 UNITS in IV Premix 1 EACH IV PRN (09:30)
[2016-11-03] MEDS ORDERED: Hemorrhage Kit, Post Partum XX ONE (09:30)
[2016-11-03] MEDS ORDERED: Carboprost 250 mCg/mL Inj IM PRN (09:30)
[2016-11-03] MEDS ORDERED: Betameth Ace-Betam SodPhos 6 mg/mL 5 mL Inj IM ONE ×2 (09:40→17:35)
--- NOTE | 2016-11-03 09:48 | PCM.HPOB ---
Subjective Date of Service: Nov 03, 2016 Referring Provider: Admitting Physician: Alejandra Grant MD Primary Care Physician: Nopcp Attending Physician: Alejandra Grant MD Chief Complaint PPROM History of Present History of Present Illness This is a 30 year old at 35 weeks and 2 days with an BEBA of 12/06/16 by US done 04/21/16 who presents with PPROM. Her is complicated by a hx of shorten cervix, two-vessel umbilical cord and intrapartum UTIs. She reports she felt a loss of fluid this morning at 8:45 am. Patient presented at 5 cm dilation. Obstetrical Complications: Other (2 vessel cord) Past Medical History Obstetrical History: Hx of cervical shortening - delivered at 38 weeks with both pregnancies 1 2 3 Missed 4 spontaneous Medical History: Headaches UTIs Hx Tobacco Use: No Smoking Status: Never Smoker Hx Alcohol Use: No Hx Substance Use: No Past Family History Living Arrangement: with Family Review of Systems Constitutional: Y: Fever Eyes: Denies: Blurred Vision Cardiovascular: Denies: Chest Pain, Edema, SOB while laying flat Respiratory: Denies: SOB with Exertion Gastrointestinal: Reports: Epigastric pain Musculoskeletal: Denies: Swelling Psychologic: Denies: Agitation Allergy Coded Allergies: No Known Allergies (Verified Allergy, Unknown, 11/03/16) Exam Vital Signs BP 114/44 P 70 RR 16 temp 36.2 Constitutional: Well-developed, Well-nourished, Obese HEENT: Atraumatic Lungs: Clear to Auscultation Heart: Regular Rate/Rhythm, Normal S1, Normal S2, Murmur (III/IV systolic murmur) Extremities: Warm, No Edema Neurological/Psychiatric: Alert, Oriented X3 Neuro: Grossly Neurologically Intact, Normal DTRs Labs/Diagnostics Labs GBS negative x 2 Maternal Blood Type: A (postive) Group B Strep Results: Sent, awaiting results Previous with GBS: Unknown Rubella: Immune OB Intrapartum Assessment/Plan Problems: (1) 35 weeks gestation of Status: Acute ICD Code: Z3A.35 (2) premature rupture of membranes Qualifiers: PROM onset of labor timing: onset of labor within 24 hours of rupture Qualified Code: O42.019 - premature rupture of membranes, onset of labor within 24 hours of rupture, unspecified trimester Plan: - Start induction with pitocin as per protocol - GBS negative on two swabs - october 12 and november 03 - Received two doses of betamethasone prior to admit Status: Acute ICD Code: O42.919 Attending Statement 30 yo , P2, at 35 weeks with PPROM, and irregular contraction. s/p betamethasone 19 days before admission for short cervix and contraction. GBS negative 20 days before admission. Plan: No antibiotics needed at this time. Could consider waiting for spotaneously onset of labor , if not, after 6 hrs after PPROM, will consider induction. Eloisa Bruner DO Nov 03, 2016 09:48 Alejandra Grant MD Nov 06, 2016 14:25
[2016-11-03] MEDS ORDERED: PNV1TABL9 PO (10:09)
[2016-11-03 11:31] LABS: Mean Corpuscular Hemoglobin 28.6 pg (27.0-35.0); Mean Corpuscular Volume 83.8 fL (81-100)
[2016-11-03] MEDS ORDERED: Oxytocin 30 Units/500 mL LR 30 UNITS in IV Premix 1 EACH IV SCH (13:20)
--- NOTE | 2016-11-03 15:30 | PCM.CHPNBM ---
Consult H&P Date of Service: Nov 03, 2016 Chief Complaint 35 2/7 week , anticipate late delivery History of Present Illness see OB H&P Maternal History Maternal Blood Type: A Maternal RH Type: Positive Maternal Group B Strep Results: Negative Addtional Information mother received 2 doses of betamethasone 10/12 for labor Two-vessel cord by ultrasound Recurrent urinary tract infections Short cervix Her previous two babies delivered at 38 weeks Maternal Labor History Date/Time of ROM: 11/03/16 0845 Amniotic Fluid Characteristics: Clear Additional Information: The mother received penicillin today at 1129 and azithromycin 1 g at 1219. Pitocin is being started. Medications Nitrofurantoin Monohyd/M-Cryst (MacroBid) 100 Mg Capsule 100 MG PO BID Penicillin G Potassium (Penicillin G Potassium) 5,000,000 Unit Vial 3,000,000 UNIT IJ Q4H Pnv Cmb#21/Iron/Folic Acid ( Complete Caplet) 1 Each Tablet 1 EACH PO ( Reported) Discontinued Medications Magnesium Sulfate in Water (Magnesium Sulf 2 G/50 ml Bag) 2 Gram/50 Ml (4 %) Piggyback 2 GM IV Q1H Allergies Coded Allergies: No Known Allergies (Verified Allergy, Unknown, 11/03/16) Objective Labs & Diagnostics Test 11/03/16 11:05 White Blood Count 9.7th/mm3 (3.8-10.1) Red Blood Count 3.95mil/mm3 (3.90-5.20) Hemoglobin 11.3g/dL (12.0-15.6) Hematocrit 33.1% (35.0-46.0) Mean Corpuscular Volume 83.8fL (81-100) Mean Corpuscular Hemoglobin 28.6pg (27.0-35.0) Mean Corpuscular Hemoglobin Concent 34.1% (32.0-37.0) Red Cell Distribution Width 13.8% (12.3-15.4) Platelet Count 213bil/L (150-400) Assessment and Plan Diagnoses Problems: (1) 35 weeks gestation of Status: Acute ICD Code: Z3A.35 (2) premature rupture of membranes Qualifiers: PROM onset of labor timing: onset of labor within 24 hours of rupture Qualified Code: O42.019 - premature rupture of membranes, onset of labor within 24 hours of rupture, unspecified trimester Status: Acute ICD Code: O42.919 Plan Social: I spoke with the mother regarding the potential complications to a delivered at 35 weeks gestation. Discussed what to anticipate in the delivery room and discussed transferring the baby to the nursery after stabilization. I answered the mother's questions. I anticipate being present at the delivery and to continue to provide information to the mother regarding her late infant. copies to: Alejandra Grant MD; Alejandra Grant MD, Donna M MD Nov 03, 2016 15:30
[2016-11-03] MEDS ORDERED: Penicillin G K Inj 3,000,000 UNITS in IV Premix 1 EACH IV SCH (16:30)
[2016-11-03] MEDS ORDERED: Betameth Ace-Betam SodPhos 6 mg/mL 5 mL Inj ONE (17:50)
--- NOTE | 2016-11-03 18:28 | PROG NOTE ---
[address] [address] PROGRESS NOTE PATIENT: TOM RANDHAWA : 1985 MR#: [id number] ADMIT: 11/03/2016 JOB ID: [id number] DATE: 11/03/2016 SUBJECTIVE: The patient was admitted this morning for premature rupture of membranes with cervical exam that was 5 cm dilated cervix, 80% effaced, -3 station by nursing staff, with a prior history of labor and administration of betamethasone on October 12, 2016. PHYSICAL EXAMINATION: Vitals: Blood pressure is 90/56, respirations are 20, pulse is 53, temperature 36.4 degrees centigrade. Cervical exam is 5 cm dilated cervix, 60% effaced, -3 station by my exam at bedside. Ultrasound confirmed vertex presentation. Grossly ruptured with clear leaking fluid. The patient had been on Pitocin for labor augmentation for the last 4 hours with no cervical changes. Discussed with the patient rescue corticosteroid dose with expectant management for 10 hours versus continuing with the Pitocin augmentation and still administering the betamethasone rescue dose. The patient opted to have expectant management for 10 hours with rescue dose of betamethasone for lung maturity. GBS cultures were negative on October 12, 2016. No need for GBS prophylaxis. ASSESSMENT AND PLAN: Patient is 30 years old, 5, para 2-0-2-2, at 35 weeks and 2 days gestational age by first trimester ultrasound on April 21, 2015 with final due date of December 06, 2016, admitted for premature rupture of membranes with leaking of fluid that started 8 a.m. this morning. No cervical changes since admission. Will proceed with rescue steroids and expectant management for next 10 hours. Will restart Pitocin augmentation if no cervical changes. Will restart augmentation if any signs or symptoms of chorioamnionitis develop or any or maternal indication for induction, restarting augmentation . Patient requested epidural. Anesthesia notified. All the above discussed in detail with the patient who agreed to the plan.
[2016-11-03] MEDS ORDERED: fentaNYL 2 mCg/mL-Bupivicaine 0.125% 100 mL Premix EPIDURAL ONE (21:48)
[2016-11-03] MEDS ORDERED: Lactated Ringer's 500 ML IV ONE (22:08)
--- NOTE | 2016-11-03 22:08 | PCM.HPANE ---
Patient Data Surgeon Admitting Provider:Alejandra Grant MD Attending Provider:Alejandra Grant MD Primary Care Physician:Michelle Other Provider:Justnya Baez Anesthesia Reason for Visit PTL PTL Ht/WT & BMI Body Mass Index Allergies Coded Allergies: No Known Allergies (Verified Allergy, Unknown, 11/03/16) Past Anesthesia History Anesthesia History: Denies:: Abnormal Airway Diabetes History Hx Diabetes?: No Medications Active Scripts Penicillin G Potassium 5,000,000 Unit Vial3,000,000 Unit IJ Q4H #1 VIAL Prov:Ellen Delong DO 10/13/16 Nitrofurantoin Monohyd/M-Cryst (MacroBid)100 Mg [id number] Mg PO BID #28 CAPSULE Prov:Ellen Delong DO 10/13/16 Reported Medications Pnv Cmb#21/Iron/Folic Acid ( Complete Caplet)1 Each Tablet1 Each PO 11/03/16 Discontinued Scripts Magnesium Sulfate in Water (Magnesium Sulf 2 G/50 ml Bag)2 Gram/50 Ml (4 %) Piggyback2 Gm IV Q1H #1 BAG Prov:Ellen Delong DO 10/13/16 History History of ENT Problems?: No HEENT History: Denies:: Abnormal Airway Denture Type: None Teeth Condition: Within Normal Limits Hx of Heart Problems?: No Cardiovascular History: Denies:: Congestive Heart Failure Hypertension Hx of Respiratory Problem?: No Respiratory History: Denies:: Tuberculosis Hx Neurologic Problems?: No Hx of GI Problems?: No Gastrointestinal History: Denies:: Cirrhosis Hx of Problems?: No Female Hx: Positive for:: Currently Hx Musculoskeletal Problems?: No Hx Surgeries?: No Hx Diabetes: No Hx Alcohol Use: NoHx Substance Use: No Smoking Status: Never Smoker Have You Smoked inLast 12 mo: No Stop/Bang Treated for Sleep Apnea?: No Do You Have a CPAP Machine?: No S-Snoring: Do You Snore Loudly: No T-Tired: feel tired, fatigued: No O-Obsered: Observed not breath: No P-Blood Pressure: treated: No B- Body Mass Index > 35 kg/m2: Yes A- Age over 50: No N- Neck Large Circumference: No G- Gender Male: No LEYLA Risk Assessment: Low Risk, <3 Yes Risk Assessment Category Category 1A: Patient has history of documented sleep apnea, and HAS NOT received any narcotic, sedative or anesthesia administration during this stay. Category 1B: Patient has history of documented sleep apnea, and HAS received any narcotic , sedative or anesthesia administration during this stay Category 2: Patient has SUSPECTED Obstructive Sleep Apnea, and HAS received any narcotic , sedative or anesthesia administration during this stay. Category 3: Patient has SUSPECTED Obstructive Sleep Apnea and HAS NOT received narcotic, sedative or anesthesia administration during this stay. Category 4: Outpatient in Procedural Areas with known sleep apnea or who screen positive for High Risk via the STOP/BANG questionnaire. Exam Exam General Appearance: Alert, Oriented X3 HEENT/AIRWAY: MP 2 Lungs: Clear to Auscultation Heart: Regular Rate/Rhythm, Normal S1, Normal S2, Murmur (III/IV systolic murmur) Meds/Labs/Diagnostics Admission Meds Current Medications Penicillin G Potassium 7006590 units/Dextrose/ Water 100 ml @ 240 mls/hr ONCE ONCE IV Last administered on 11/03/16 11:29; Start 11/03/16 at 09:30; Stop 01/10 at 13:28; Status DC Lactated Ringer's (Lr) 1,000 ml @ 125 mls/hr Q8H IV Last administered on 11:28; Start 11/03/16 at 09:29 Azithromycin 1000 mg 1,000 mg ONCE ONCE PO Last administered on 11/03/16 12: 19; Start 11/03/16 at 11:35; Stop 11/03/16 at 13:28; Status DC Oxytocin/Lactated Ringer's/Premix (Pitocin 30 Units/500 mL LR/ IV Premix) 500 ml @ 0 mls/hr Q0M IV Last administered on 11/03/16 13:53; Start 11/03/16 at 13 :20 Acetaminophen (Tylenol) 975 mg OT ONCE PO Last administered on 11/03/16 15:34 ; Start 11/03/16 at 15:30; Stop 11/03/16 at 15:31; Status DC Betamethasone Acet/Betameth SodPhos (Celestone Soluspan Inj) 12 mg ONCE ONCE IM Last administered on 11/03/16 17:59; Start 11/03/16 at 17:35; Stop at 17:39; Status DC Labs Test 11/03/16 11:05 White Blood Count 9.7th/mm3 (3.8-10.1) Red Blood Count 3.95mil/mm3 (3.90-5.20) Hemoglobin 11.3g/dL (12.0-15.6) Hematocrit 33.1% (35.0-46.0) Mean Corpuscular Volume 83.8fL (81-100) Mean Corpuscular Hemoglobin 28.6pg (27.0-35.0) Mean Corpuscular Hemoglobin Concent 34.1% (32.0-37.0) Red Cell Distribution Width 13.8% (12.3-15.4) Platelet Count 213bil/L (150-400) Plan Impression Patient chart reviewed, patient interviewed and anesthestic plan with risks, benefits, and alternatives discussed, and informed consent obtained. NPO per Anesth. Guidelines: Yes ASA Physical Status: ASA2 Mod Systemic Disease Anesthetic Plan: Epidural Bene/Risks/Altern/Consents: Yes HP Complete Prior to Induction: Yes Ernesto Guzman MD Nov 03, 2016 22:08
[2016-11-03] MEDS ORDERED: Atropine 1 mg/10 mL (Code) Syringe IVPUSH PRN (22:10)
[2016-11-03] MEDS ORDERED: Ondansetron 2 mg/mL 2 mL Inj IVPUSH PRN (22:10)
[2016-11-03] MEDS ORDERED: fentaNYL 2 mCg/mL-Bupiv 0.125% 100 ML EPIDURAL SCH (22:10)
[2016-11-03] MEDS ORDERED: EPHEDrine Sulfate 50 mg/mL Inj IVPUSH PRN (22:10)
[2016-11-04] MEDS ORDERED: Sodium Chloride LOK Flush 10 mL Syringe IVFLUSH SCH (00:30)
[2016-11-04] MEDS ORDERED: Lactated Ringer's 1,000 ML IV SCH (03:03)
[2016-11-04] MEDS ORDERED: Oxytocin 10 Unit/mL Inj IM PRN (03:05)
[2016-11-04] MEDS ORDERED: Carboprost 250 mCg/mL Inj IM PRN (03:05)
[2016-11-04] MEDS ORDERED: oxyCODONE-Acetamin 5-325 mg Tablet PO PRN (03:05)
[2016-11-04] MEDS ORDERED: Hemorrhage Kit, Post Partum XX ONE (03:05)
[2016-11-04] MEDS ORDERED: Witch Hazel-Glycerin Pads TOPICAL PRN (03:05)
[2016-11-04] MEDS ORDERED: Oxytocin 30 Units/500 mL LR 30 UNITS in IV Premix 1 EACH IV PRN (03:05)
[2016-11-04] MEDS ORDERED: Methylergonovine 0.2 mg/mL Inj IM PRN (03:05)
[2016-11-04] MEDS ORDERED: Benzocaine (Dermoplast) 20% 60 Gm Spray TOPICAL PRN (03:05)
--- NOTE | 2016-11-04 03:49 | OP ---
[address] [address] OPERATIVE REPORT PATIENT: TOM RANDHAWA : 1985 MR#: [id number] ADMIT: 11/03/2016 JOB ID: [id number] DATE OF SURGERY: 11/04/2016 PREOPERATIVE DIAGNOSIS(ES): A 30-year-old 5, para 2-0-2-2, at 35 weeks and 3 days gestational age, admitted with premature rupture of membranes. She received a rescue corticosteroid dose at 6 p.m. yesterday. Progressed to fully dilated, +3 station. POSTOPERATIVE DIAGNOSIS(ES): A 30-year-old 5, para 2-0-2-2, at 35 weeks and 3 days gestational age, admitted with premature rupture of membranes. She received a rescue corticosteroid dose at 6 p.m. yesterday. Progressed to fully dilated, +3 station. PROCEDURE: Spontaneous vaginal delivery. SURGEON: Marin Xiong MD ANESTHESIA: Epidural. ESTIMATED BLOOD LOSS: 200 cc. COMPLICATIONS: None. FINDINGS: Single viable female with Apgars of 9, weight still pending. PROCEDURE IN DETAIL: The patient started to push efficiently. Infant's head delivered in left occiput anterior position, followed by shoulders and the rest of the body. Delayed cord clamping allowed for 60 seconds. Infant was placed over mom's chest. Cord was clamped and cut. Placenta followed spontaneously. Upon inspection, it was noted to be intact with marginal insertion of a two-vessel cord. Inspection of the perineum revealed no lacerations. Bimanual exam confirmed firm uterine fundus with no blood clots retrieved. Total estimated blood loss was 200 cc. Mom and baby are recovering in stable condition in the labor and delivery room. Sponge and instrument counts were correct x2 at the end of the procedure. Dr. Xiong was present and scrubbed for the entire procedure.
[2016-11-04] MEDS: LANOlin HPA 7 Gm Ointment TOPICAL PRN ×2 (06:28→14:49)
[2016-11-04] MEDS: Ascorbic Acid 500 mg Tablet PO SCH ×2 (10:02→17:26)
[2016-11-05] MEDS: Ascorbic Acid 500 mg Tablet PO SCH (07:30)
[2016-11-05 09:18] LABS: Mean Corpuscular Hemoglobin 28.9 pg (27.0-35.0); Mean Corpuscular Volume 86.2 fL (81-100)
--- NOTE | 2016-11-05 15:29 | PCM.DIMED ---
Discharge Instructions Date of Service Nov 05, 2016 Dates of Hospitalization Nov 03, 2016 at 09:16 Diet Discharge Diet: No restrictions Activity Discharge Activity: No restrictions Call your provider Call your provider for: Fever or Chills, Shortness of breath, Bleeding, Chest pain, Vomitting, Excessive diarrhea, Weakness (unilateral) Patient Instructions Follow-up with PCP in: 6 weeks Bashir Johnson MD Nov 05, 2016 15:29
[2016-11-05] MEDS ORDERED: DOCU-41 PO (15:31)
[2016-11-05] MEDS ORDERED: OXYC1TAB24 PO (15:31)
[2016-11-05] MEDS ORDERED: IBUP-1827 PO (15:31)
[2016-11-05] MEDS ORDERED: FERR-74 PO (15:31)
[2016-11-05 15:40] VITALS: BP 107/53; PULSE 59; RESP 18
--- NOTE | 2016-11-05 16:19 | DIS ---
[address] [address] DISCHARGE SUMMARY PATIENT: TOM RANDHAWA : 1985 MR#: [id number] ADMIT: 11/03/2016 JOB ID: [id number] DIS: ADMITTING DIAGNOSIS: A 30-year-old, 5, para 2, at 35 weeks and two days with spontaneous premature rupture of membranes. DISCHARGE DIAGNOSIS: A 30-year-old, 5, para 3, status post spontaneous vaginal delivery. HOSPITAL COURSE: The patient is a 30-year-old, 5, para three now who came to Labor and Delivery on November 03, 2016 with 5 cm dilation and spontaneous premature rupture of membranes. The patient's care was complicated by a history of two-vessel umbilical cord and interim positive urinary tract infections. The patient was stable, afebrile. heart rate tracing category one. She was admitted for delivery. She underwent spontaneous vaginal delivery on November 04, 2016 at 2:45 a.m., delivered a female with a weight 5 pounds and 4 ounces, Apgars 9 at one minute and 9 at five minutes. Delayed cord clamping was allowed. Total estimated blood loss was 200 mL. The patient has not had any lacerations, otherwise delivery was uncomplicated. The patient was seen on day one, November 05, 2016. She was ambulating, tolerating regular food. Did not have any complaints of pain. PHYSICAL EXAMINATION: On exam the abdomen was soft, nondistended. The fundus was at the level of the umbilicus. There was no vaginal bleeding. No abnormal vaginal discharge. Lungs were clear, good respiratory effort. The perineum was intact. There was no calf tenderness. No pitting edema. LABORATORY: day 1 labs showed WBC count of 8.4, hemoglobin 10.7, hematocrit 31.9, platelet count 215. DISPOSITION: The patient was discharged home on day one, November 05, 2016, with all discharge criteria met. She received discharge medications including Motrin 600 mg p.o. t.i.d. p.r.n., Colace 100 mg p.o. b.i.d. Followup visit in the clinic is scheduled in six weeks.
--- NOTE | 2016-11-07 16:44 | PATH ---
SURGICAL PATHOLOGY Attending Physician:Alejandra Grant MD CASE STATUS: Signed Out PATIENT NAME: TOM RANDHAWA PID: [id number] : 1985 DATE COLLECTED:11/04/2016 17:02 SPECIMEN: Placenta CLINICAL HISTORY: PRE-TERM DELIVERY 1). PLACENTA FINAL DIAGNOSIS: 1.PLACENTA, SPONTANEOUS PRE-TERM VAGINAL DELIVERY: - NEVES PLACENTA WEIGHING 344 GRAMS. - MEMBRANES WITH NO EVIDENCE OF CHORIOAMNIONITIS. - TWO VESSEL UMBILICAL CORD WITH NO EVIDENCE OF FUNISITIS. - VILLOUS MORPHOLOGY APPROPRIATE FOR GESTATIONAL AGE. ICD10 O60. GROSS DESCRIPTION: The specimen is received in formalin, labeled with the patient's name, and consists of an intact placenta which includes the placental disc (344 g, 16.0 x 15.0 x 2.0 cm), membranes and portion of umbilical cord (length-2.0 cm, diameter-1.2 x 0.8 cm). The membranes are ruptured 1.5 cm from the free edge of the placenta and are translucent. The umbilical cord is attached 3.8 cm from the edge of the placenta and contains 2 vessels. The surface is smooth and shiny with no evidence of meconium identified. The maternal surface is dark maroon with normal cotyledon formation. The placental body is spongy with no nodules, masses, lesions, hematomas or infarcts identified. Section code: (A) edge of placenta with membranes, umbilical cord, portion of umbilical cord entirely submitted; (B-E) placenta, 4 full-thickness sections. 11/05/16 JM MICRO DESCRIPTION: See diagnosis. ICD-9 CODES: CPT CODES: 1: 39982 Electronically Signed Out Mikael Salmeron MD [facility] [address], [place] [address] Technical component performed at [facility], [facility] [address], [place], [address]
== END 2016-11-05 18:10 | disposition home or self-care (01) | DRG 560 ==
LOC: FBCO 08:40 → FBC 09:16
PROVIDERS: ADMIT Obstetrics & Gynecology; ATTEND Obstetrics & Gynecology
PROC: 10E0XZZ Delivery of Products of Conception, External Approach (ICD-10-PCS; principal; 2016-11-04)
DX: O42.013 Preterm premature rupture of membranes, onset of labor within 24 hours of rupture, third trimester (principal); O69.89X0 Labor and delivery complicated by other cord complications, not applicable or unspecified; Z3A.35 35 weeks gestation of pregnancy; Z37.0 Single live birth